=== PATIENT | female | born 1960 | race Caucasian/White ===

== ENCOUNTER → 2023-08-12 | Outpatient (CLI) | payer BC | LOC: MAMMO 14:00 | DX: Z12.31 Encounter for screening mammogram for malignant neoplasm of breast (principal); N63.20 Unspecified lump in the left breast, unspecified quadrant; R92.0 Mammographic microcalcification found on diagnostic imaging of breast ==

== ENCOUNTER → 2023-08-27 | Outpatient (CLI) | payer BC | LOC: RAD 13:19 | DX: N63.21 Unspecified lump in the left breast, upper outer quadrant (principal) ==

== ENCOUNTER → 2024-08-18 | Outpatient (CLI) | payer OTHER | LOC: MAMMO 13:30 | DX: Z12.31 Encounter for screening mammogram for malignant neoplasm of breast (principal) ==